=== PATIENT | male | born 1935 | race Caucasian/White ===

== ENCOUNTER → 2017-03-01 11:52 | Outpatient (CLI) | payer MEDICARE, BC ==
[2015-09-25 13:29] VITALS: BMI 25.5
[~2017-03-01 11:52] MED LIST: CENTRUM COMPLE1 EACH PO; CINNAMON500 MG PO; CITRUCEL PO; COD LIVER OIL; COD LIVER OIL PO; ELIQUIS2.5 MG PO; FISH OIL 1,0001 CA1 PO; LUTEIN20 MG PO; MS CONTIN15 MG PO; OCUVITE TABLET1 TA1 PO; OMEPRAZOLE20 M1 PO; OXYCODONE HCL5 MG PO; PLAVIX75 MG PO; TRICOR145 MG PO; ZETIA10 MG PO; ZOLOFT50 MG PO
== END | disposition home or self-care (01) ==
LOC: D.CT 11:52
DX: R59.1 Generalized enlarged lymph nodes (principal); M25.562 Pain in left knee

== ENCOUNTER → 2019-01-04 11:32 | Outpatient (CLI) | payer MEDICARE, BC ==
[2015-09-25 13:29] VITALS: BMI 25.5
== END | disposition home or self-care (01) ==
LOC: D.LAB 11:32
PROVIDERS: ATTEND Internal Medicine Gastroenterology
DX: N40.2 Nodular prostate without lower urinary tract symptoms (principal)

== ENCOUNTER → 2019-03-13 08:58 | Outpatient (CLI) | payer MEDICARE, BC ==
[2015-09-25 13:29] VITALS: BMI 25.5
[~2019-03-13 08:58] MED LIST changes: +CIPRO500 MG PO; -COD LIVER OIL; +ROCEPHIN 1 GM/D51 G1 IV
== END | disposition home or self-care (01) ==
LOC: D.CT 08:58
PROVIDERS: ATTEND Family Medicine
DX: I65.29 Occlusion and stenosis of unspecified carotid artery (principal)

== ENCOUNTER → 2019-03-28 07:58 | Outpatient (CLI) | payer MEDICARE, BC ==
[2015-09-25 13:29] VITALS: BMI 25.5
== END | disposition home or self-care (01) ==
LOC: D.NM 07:58
PROVIDERS: ATTEND Internal Medicine Gastroenterology
DX: R10.9 Unspecified abdominal pain (principal); R14.0 Abdominal distension (gaseous)

== ENCOUNTER 2019-03-31 18:08 | Inpatient (IN) | payer MEDICARE, BC ==
[~2019-03-31] VITALS: Ht 170.2 cm; Wt 79.5 kg
[~2019-03-31 18:08] MED LIST changes: -CIPRO500 MG PO; -ROCEPHIN 1 GM/D51 G1 IV
[2019-03-31] MEDS ORDERED: CIPRO500 MG PO (18:30)
[2019-03-31] MEDS ORDERED: ROCEPHIN 1 GM/D51 G1 IV (18:30)
[2019-03-31 19:11] LABS: BASOPHILS 0.1 % (0-2); EOSINOPHILS 0.6 % (0-7); HEMATOCRIT 49.4 % (42.0-54.0); IMMATURE GRANULOCYTES 0.4 % (0-5); LYMPHOCYTES 6.6 % (15-50); MCH 28.1 pg (26.0-34.0); MCHC 32.4 g/dL (31.0-37.0); MCV 86.8 fL (80.0-100.0); MONOCYTES 7.3 % (2-11); PLATELET COUNT 224 10x3/uL (130-400); RBC 5.69 10x6/uL (4.20-6.10); RDW 14.2 % (11.5-14.5); WBC 14.3 10x3/uL (4.8-10.8)
[2019-03-31 19:12] LABS: CALCIUM 8.5 mg/dL (8.5-10.1); CARBON DIOXIDE 26.3 mmol/L (21.0-32.0); CREATININE - SERUM 1.2 mg/dL (0.6-1.3); POTASSIUM - SERUM 4.3 mmol/L (3.5-5.1)
[2019-03-31 19:17] LABS: APPEARANCE CLEAR (CLEAR); BILIRUBIN NEGATIVE (NEGATIVE); COLOR YELLOW (YELLOW); GLUCOSE NEGATIVE (NEGATIVE); KETONE NEGATIVE (NEGATIVE); NITRITE NEGATIVE (NEGATIVE); PROTEIN 1+ mg/dL (NEGATIVE); SPECIFIC GRAVITY 1.005 (1.005-1.020); UROBILINOGEN NORMAL (NORMAL)
[2019-03-31 19:18] LABS: BACTERIA FEW /hpf (NEGATIVE); EPITHELIAL CELLS 0-5 /hpf (0-5); RED CELLS - URINE 0-5 /hpf (0-5)
[2019-03-31 19:20] LABS: ALBUMIN 3.4 g/dL (3.4-5.0); BILIRUBIN - TOTAL 0.27 mg/dL (0.2-1.3); PROTEIN - SERUM 7.3 g/dL (6.4-8.2)
--- NOTE | 2019-03-31 20:09 | NUR ---
REPORT RECEIVED FROM KOFFI, AWAITING PT'S ARRIVAL.
--- NOTE | 2019-03-31 20:18 | NUR ---
PT TO ROOM 1210 VIA WHEELCHAIR ACCOMPANIED BY AND ROOSEVELT RAIN. PIV NOTED TO RIGHT AC, INFUSING NS @ 125 ML/HR WITHOUT ISSUE, NO S/S OF INFILTRATION OR INFLAMMATION NOTED. VSS, DENIES ANY NEEDS AT THIS TIME. BED IN LOWEST POSITION, SR X1, CALL LIGHT WITHIN REACH. WILL CONTINUE TO MONITOR.
[2019-03-31 20:25] VITALS: BP 140/55
[2019-03-31 23:39] VITALS: BP 140/55; BMI 27.4
[2019-04-01] VITALS: BP 144/66
[2019-04-01 04:00] VITALS: BP 124/55
[2019-04-01 06:09] LABS: BASOPHILS 0.1 % (0-2); HEMATOCRIT 43.5 % (42.0-54.0); HEMOGLOBIN 14.4 g/dL (13.5-17.5); IMMATURE GRANULOCYTES 0.2 % (0-5); LYMPHOCYTES 11.5 % (15-50); MCH 28.6 pg (26.0-34.0); MCHC 33.1 g/dL (31.0-37.0); MCV 86.5 fL (80.0-100.0); MEAN PLATELET VOLUME 9.2 fL (7.4-10.4); MONOCYTES 9.9 % (2-11); NEUTROPHILS 76.3 % (40-80); PLATELET COUNT 208 10x3/uL (130-400); RBC 5.03 10x6/uL (4.20-6.10); RDW 14.7 % (11.5-14.5); WBC 11.2 10x3/uL (4.8-10.8)
[2019-04-01 06:20] LABS: APTT 46.1 SECONDS (22.8-39.4); INR 1.2 (0.85-1.17); PROTIME 14.7 SECONDS (11.6-15.0)
[2019-04-01 06:48] LABS: ANION GAP 11.3 mmol/L (8-16); CALCIUM 8.5 mg/dL (8.5-10.1); CARBON DIOXIDE 26.7 mmol/L (21.0-32.0); CREATININE - SERUM 1.2 mg/dL (0.6-1.3); PHOSPHOROUS 2.4 mg/dL (2.5-4.9)
[2019-04-01 08:00] VITALS: BP 157/70
--- NOTE | 2019-04-01 10:11 | NUR ---
PT ALERT X 4. BREATH SOUNDS CLEAR BILAT. ABDOMEN DISTENDED AND TENDER, PT REPORTING MULTIPLE BLOODY STOOLS. IV TO RIGHT AC, PATENT, DRESSING CDI. BED LOW, CALL LIGHT IN REACH. NO OTHER NEEDS AT THIS TIME.
[2019-04-01 11:59] VITALS: Ht 170.2 cm; Wt 79.5 kg
[2019-04-01 12:00] VITALS: BP 161/62
--- NOTE | 2019-04-01 19:30 | NUR ---
PT IS RESTING IN BED WITH EYES OPEN. ALERT AND ORIENTED X 3. DENIES ANY DISCOMFORT AT THIS TIME. IV INFUSING TO RIGHT AC WITHOUT DIFFICULTY. NO REDNESS OR EDEMA NOTED AT THE INSERTION SITE. [facility] CATH IS PATENT AND DRAINING TO A GRAVITY BAG. SR'S ARE UP X 2 IN BED. CALL LIGHT AND BEDSIDE TABLE ARE WITHIN EASY REACH.
[2019-04-01 19:56] VITALS: BP 126/60
--- NOTE | 2019-04-01 21:18 | NUR ---
PT RESTING IN BED WITH EYES CLOSED. AWAKENS EASILY TO VERBAL STIMULI. NO NEEDS VOICED.
[2019-04-02 00:05] VITALS: BP 172/67
--- NOTE | 2019-04-02 00:09 | NUR ---
PT RESTING IN BED WITH EYES CLOSED. AWOKE EASILY TO VERBAL STIMULI. VSS.
[2019-04-02 04:00] VITALS: BP 145/65
--- NOTE | 2019-04-02 04:55 | NUR ---
PT IS RESTING QUIETLY IN BED WITH EYES CLOSED. RESPS ARE EVEN AND UNLABORED. NO ACUTE DISTRESS NOTED.
[2019-04-02 06:16] LABS: BASOPHILS 0.1 % (0-2); EOSINOPHILS 4.3 % (0-7); HEMATOCRIT 44.7 % (42.0-54.0); HEMOGLOBIN 14.6 g/dL (13.5-17.5); IMMATURE GRANULOCYTES 0.2 % (0-5); MCH 28.5 pg (26.0-34.0); MCHC 32.7 g/dL (31.0-37.0); MCV 87.3 fL (80.0-100.0); MEAN PLATELET VOLUME 8.5 fL (7.4-10.4); MONOCYTES 8.6 % (2-11); NEUTROPHILS 73.8 % (40-80); PLATELET COUNT 206 10x3/uL (130-400); RBC 5.12 10x6/uL (4.20-6.10); RDW 14.7 % (11.5-14.5); WBC 8.4 10x3/uL (4.8-10.8)
[2019-04-02 06:38] LABS: ANION GAP 11.9 mmol/L (8-16); CALCIUM 8.3 mg/dL (8.5-10.1); CARBON DIOXIDE 29.3 mmol/L (21.0-32.0); CREATININE - SERUM 1.1 mg/dL (0.6-1.3); MAGNESIUM - SERUM 1.9 mg/dL (1.8-2.4); POTASSIUM - SERUM 4.2 mmol/L (3.5-5.1)
[2019-04-02 06:40] LABS: PHOSPHOROUS 3.1 mg/dL (2.5-4.9)
--- NOTE | 2019-04-02 09:03 | NUR ---
PT ALERT X 4. BREATH SOUNDS DIMINISHED TO RLL. ABDOMEN DISTENDED. MANZANARES IN PLACE, URINE YELLOW AND CLEAR. PT REPORTING PAIN OF 2/10, WILL MONITOR. IV TO RIGHT FOREARM, PATENT, DRESSING CDI. BED LOW, CALL LIGHT IN REACH. NO OTHER NEEDS AT THIS TIME.
--- NOTE | 2019-04-02 12:05 | MORECARE ---
CASE MANAGEMENT DISCHARGE SUMMARY PATIENT: CORI ZARAGOZA JR UNIT: [id number] ADM DATE: 03/31/19 AGE: 83 : 36 SEX: M ROOM/BED: D.1210 AUTHOR: THERESE DAVIS PHYSICIAN: REFERRING PHYSICIAN: DIANA CARSON MD DATE OF SERVICE: 04/02/19 Discharge Plan Patient Name: CORI ZARAGOZA [facility] : 1935 Planned Disposition: Anticipated Discharge Date: Discharge Date: Expected LOS: Initial Reviewer: [email or web address] Initial Review Date: 04/02/2019 Generated: 04/02/19 1:05 pm Patient Name: CORI ZARAGOZA Page [id number] at 1205 All edits/amendments must be made on the electronic document DICTATION DATE: 04/02/19 1205 PRIVATE TUTORS AND TEACHERS: YEHUDA 04/02/19 1205 RPT#: [id number] DC DATE: STATUS: ADM IN [facility] [address] [place] [address] END OF REPORT
--- NOTE | 2019-04-02 12:13 | MORECARE ---
CASE MANAGEMENT DISCHARGE SUMMARY PATIENT: CORI ZARAGOZA UNIT: [id number] ADM DATE: 03/31/19 AGE: 83 : 36 SEX: M ROOM/BED: D.1210 AUTHOR: RYANDOC PHYSICIAN: REFERRING PHYSICIAN: DIANA CARSON MD DATE OF SERVICE: 04/02/19 Discharge Plan Patient Name: CORI ZARAGOZA Facility: [facility]:[place] : 1935 Planned Disposition: Anticipated Discharge Date: Discharge Date: Expected LOS: Initial Reviewer: [email or web address] Initial Review Date: 04/02/2019 Generated: 04/02/19 1:12 pm Comments DCP- Discharge Planning Updated by [email or web address]: Shona Kelley on 04/02/19 11:[address] Patient Name: CORI ZARAGOZA Admission Status: ER Accout number: [id number] Admission Date: 03-31-2019 : 1935 Admission Diagnosis: Attending: DIANA CARSON Current LOS: 2 Anticipated DC Date: Planned Disposition: Primary Insurance: MEDICARE A & B Discharge Planning Comments: CM MET WITH PATIENT AFTER OBTAINING VERBAL CONSENT. STATES PLANS TO DISCHARGE TO HOME. DISCUSSED NEED FOR HH, REHAB OR EQUIPMENT, PATIENT STATES NO NEEDS. I TALKED WITH HIM ABOUT HH FOR [facility] CATH CARE, HE STATES HE WANTS THE CATH OUT. RN HAS DR. JORGE NEUMANN. IF HE IS DISCHARGING WITH [facility]ARES I WILL TALK WITH HIM ABOUT A HH ANGENCY. CM WILL FOLLOW AND ASSIST NEEDED. Automotive Welder: Shona Kelley DCPIA - Discharge Planning Initial Assessment Updated by [email or web address]: Shona Kelley on 04/02/19 12:09 pm * Is the patient Alert and Oriented? Yes * PCP SOLO * Preadmission Environment Home with Family * ADLs Independent * Other Equipment NONE * List name and contact numbers for known caregivers / representatives who currently or will assist patient after discharge: SHAHLA PRESTON, * Community resources currently utilized None * Additional services required to return to the preadmission environment? No * Can the patient safely return to the preadmission environment? Yes * Has this patient been hospitalized within the prior 30 days at any hospital? No Last DP export: 04/02/19 11:05 a Patient Name: CORI ZARAGOZA Page [id number] at 1213 All edits/amendments must be made on the electronic document DICTATION DATE: 04/02/191211 SUPPLIER QUALITY SPECIALIST: YEHUDA 04/02/191211 RPT#: [id number] DC DATE: STATUS: ADM IN [facility] [address] [place] [address] END OF REPORT
--- NOTE | 2019-04-02 14:20 | NUR ---
DISCHARGE PAPERWORK SIGNED, ALL QUESTIONS ANSWERED. IV TO RIGHT AC DC'D, TIP INTACT. ESCORTED OUT BY WHEELCHAIR.
--- NOTE | 2019-04-02 16:06 | MORECARE ---
CASE MANAGEMENT DISCHARGE SUMMARY PATIENT: CORI ZARAGOZA UNIT: [id number] ADM DATE: 03/31/19 AGE: 83 : 36 SEX: M ROOM/BED: D.1210 AUTHOR: RYANDOC PHYSICIAN: REFERRING PHYSICIAN: DIANA CARSON MD DATE OF SERVICE: 04/02/19 Discharge Plan Patient Name: CORI ZARAGOZA Facility: [facility]:[place] : 1935 Planned Disposition: Anticipated Discharge Date: Discharge Date: 04/02/2019 Expected LOS: Initial Reviewer: [email or web address] Initial Review Date: 04/02/2019 Generated: 04/02/19 5:06 pm Comments DCP- Discharge Planning Updated by [email or web address]: Shona Kelley on 04/02/19 11:[address] Patient Name: CORI ZARAGOZA Admission Status: ER Accout number: [id number] Admission Date: 03-31-2019 : 1935 Admission Diagnosis: Attending: DIANA CARSON Current LOS: 2 Anticipated DC Date: Planned Disposition: Primary Insurance: MEDICARE A & B Discharge Planning Comments: CM MET WITH PATIENT AFTER OBTAINING VERBAL CONSENT. STATES PLANS TO DISCHARGE TO HOME. DISCUSSED NEED FOR HH, REHAB OR EQUIPMENT, PATIENT STATES NO NEEDS. I TALKED WITH HIM ABOUT HH FOR [facility]ES CATH CARE, HE STATES HE WANTS THE CATH OUT. RN HAS DR. JORGE NEUMANN. IF HE IS DISCHARGING WITH [facility]ARES I WILL TALK WITH HIM ABOUT A HH ANGENCY. CM WILL FOLLOW AND ASSIST NEEDED. Ultrasound Supervisor: Shona Kelley DCPIA - Discharge Planning Initial Assessment Updated by [email or web address]: Shona Kelley on 04/02/19 12:09 pm * Is the patient Alert and Oriented? Yes * PCP SOLO * Preadmission Environment Home with Family * ADLs Independent * Other Equipment NONE * List name and contact numbers for known caregivers / representatives who currently or will assist patient after discharge: SHAHLA PRESTON, * Community resources currently utilized None * Additional services required to return to the preadmission environment? No * Can the patient safely return to the preadmission environment? Yes * Has this patient been hospitalized within the prior 30 days at any hospital? No Last DP export: 04/02/19 11:13 a Patient Name: CORI ZARAGOZA Page [id number] at 1606 All edits/amendments must be made on the electronic document DICTATION DATE: 04/02/19 1606 HUMAN INTELLIGENCE: YEHUDA 04/02/19 1606 RPT#: [id number] DC DATE:04/02/19 STATUS: DIS IN [facility] [address] [place] [address] END OF REPORT
== END 2019-04-02 14:00 | disposition home or self-care (01) | DRG 728 ==
LOC: D.ER 18:08 → D.M3 19:26
PROVIDERS: Emergency Medicine; ADMIT Internal Medicine Nephrology; ATTEND Internal Medicine Nephrology
DX: N41.9 Inflammatory disease of prostate, unspecified (principal); N39.0 Urinary tract infection, site not specified; N12 Tubulo-interstitial nephritis, not specified as acute or chronic; E87.1 Hypo-osmolality and hyponatremia; I10 Essential (primary) hypertension; E78.5 Hyperlipidemia, unspecified; K21.9 Gastro-esophageal reflux disease without esophagitis; M19.90 Unspecified osteoarthritis, unspecified site; R19.7 Diarrhea, unspecified; Z86.73 Personal history of transient ischemic attack (TIA), and cerebral infarction without residual deficits